=== PATIENT | male | born 1930 | race Caucasian/White ===

== ENCOUNTER 2017-08-21 06:12 | Day surgery (SDC) | payer MEDICARE, BC ==
[~2017-08-21] VITALS: Ht 190.5 cm; Wt 94.0 kg
[2017-08-21 06:41] VITALS: BP 158/63; PULSE 56; TEMP 97.2
[2017-08-21] MEDS ORDERED: ZYLOPRIM 300MG300 MG PO (07:11)
[2017-08-21] MEDS ORDERED: HCTZ 25MG TAB25 MG PO (07:12)
[2017-08-21] MEDS ORDERED: K-DUR 10 MEQ T10 MEQ PO (07:12)
[2017-08-21] MEDS ORDERED: ASPIRIN E.C. 8181 MG PO (07:15)
[2017-08-21] MEDS ORDERED: CARDIZEM CD360 MG PO (07:15)
[2017-08-21] MEDS ORDERED: SYNTHROID0.1 MG/TAB PO (07:15)
[2017-08-21] MEDS ORDERED: TRICOR145 MG PO (07:16)
[2017-08-21] MEDS ORDERED: MIRALAX510G PO (07:17)
[2017-08-21] MEDS ORDERED: OCUVITE ADULT 51 SGL PO (07:18)
[2017-08-21 09:05] VITALS: BP 120/64; PULSE 44; TEMP 97.1
[2017-08-21 09:20] VITALS: BP 154/60; PULSE 42
[2017-08-21 09:35] VITALS: BP 143/66; PULSE 42
[2017-08-21 09:50] VITALS: BP 147/59; PULSE 42
== END 2017-08-21 10:30 | disposition home or self-care (01) ==
LOC: SDCO 06:12
DX: N21.0 Calculus in bladder (principal); T19.1XXA Foreign body in bladder, initial encounter; R31.0 Gross hematuria; I10 Essential (primary) hypertension; E07.9 Disorder of thyroid, unspecified; Z90.49 Acquired absence of other specified parts of digestive tract; Z79.82 Long term (current) use of aspirin; Z79.899 Other long term (current) drug therapy; Z85.46 Personal history of malignant neoplasm of prostate; Z90.79 Acquired absence of other genital organ(s)
CPT/HCPCS: J0690; J2405; J2704; J3010; J3301; J7120